=== PATIENT | female | born 1990 | race Caucasian/White ===

== ENCOUNTER 2018-02-23 17:38 | Emergency (ER) | payer OTHER ==
[2018-02-23 19:19] VITALS: BMI 36.2
[2018-02-23 20:10] LABS: BASO % 0.3 % (0.0-2.0); EOS # 0.1 K/uL (0.0-0.7); EOS % 0.9 % (0.0-4.0); HEMOGLOBIN 12.8 g/dL (12.0-16.0); LYMPH # 1.7 K/uL (1.0-4.3); LYMPH % 20.4 % (20.0-40.0); MEAN CELL VOLUME 83.3 fl (81.0-99.0); MEAN CORPUSCULAR HEMOGLOBIN 28.1 pg (27.0-31.0); MEAN CORPUSCULAR HGB CONC 33.8 g/dL (33.0-37.0); MEAN PLATELET VOLUME 10.3 fl (7.2-11.7); MONO # 0.7 K/uL (0.0-0.8); MONO % 7.8 % (0.0-10.0); NEUT % 70.6 % (50.0-75.0); NRBC % 0.1 % (0.0-0.0); RBC 4.54 Mil/uL (3.80-5.20); RED CELL DISTRIBUTION WIDTH 13.8 % (11.5-14.5); WHITE BLOOD COUNT 8.5 K/uL (4.8-10.8)
[2018-02-23 20:15] LABS: SQUAMOUS EPITHIAL 3 /hpf (0-5); URINE BACTERIA RARE (<OCC); URINE BILIRUBIN NEGATIVE (NEGATIVE); URINE BLOOD NEGATIVE (NEGATIVE); URINE CALCIUM OXALATE CRYSTALS MANY /hpf (<OCC); URINE CLARITY CLOUDY (Clear); URINE COLOR YELLOW (YELLOW); URINE GLUCOSE (UA) NEG (Normal); URINE LEUKOCYTE ESTERASE TRACE Leu/uL (Negative); URINE PROTEIN 100 mg/dL (NEGATIVE); URINE UROBILINOGEN 0.2-1.0 mg/dL (0.2-1.0)
[2018-02-23 20:17] LABS: INR 0.9 (0.9-1.2); PARTIAL THROMBOPLASTIN TIME 28.5 Seconds (25.6-37.1)
[2018-02-23 20:22] LABS: ALBUMIN 3.1 g/dL (3.5-5.0); ALT/SGPT 28 U/L (9-52); AST/SGOT 20 U/L (14-36); BLOOD UREA NITROGEN 14 mg/dl (7-17); CALCIUM 8.6 mg/dL (8.4-10.2); GFR AFRICAN-AMERICAN > 60; GFR NON-AFRICAN AMERICAN > 60; URIC ACID 5.6 mg/Dl (2.2-7.5)
[2018-02-24 02:02] VITALS: BP 123/74; PULSE 79; RESP 18; O2SAT 99
--- NOTE | 2018-02-24 02:30 | OBHP ---
Datetime: 02/23/2018 19:56 IP Adm Impression: Term, intrauterine IP Admit Plan: Observation/Evaluation Admit Comment, IP Provider: Pt is 28 y/o with IUP 38.2 (KAREL 03/07) sent from office to [facility] for evaluation of high blood pressure and preeclampsia symptoms. Pt's blood pressure noted to be in 150' s systolic in the office and pt was complaining of mild headache and occassional visual disturbances (seeing spots) for the past 2 weeks. She has also noticed puffiness of her hands and feet that have w orsened over the past week. Denies epigastric/ruq pain, ctx, vb, lof, n/v, fever. PNC: Dr. Rodriguez, GDM- diet controlled OBHx: 1 prior C section, 2008, for failure to progress, full term PMHx: Denies PSurgHx: Wiley, 2009 Meds: PNV Allergies: NKDA Social: Denies habits x3 Maternal vital signs on presentation: BP 129/83, HR 72 General: Appears confortable, NAD HEENT: Normocephalic, atraumatic, PEERLA, EOM in tact Cardio: RRR, no murmurs Pulm: CTABL Abdomen: Gravid, NT Ext: trace edema, non pitting FHR:140, reactive A: IUP 38.2wks sent from clinic for elevated BP and preeclampsia symptoms. Maternal blood pressure s reassuring. FHR reactive P: Preeclampsia labs sent- Urine protein 100, otherwise normal. Pt given Rx for 24 hours urine col lection to be f/u at next office visit. Preeclampsia precautions given. Discharge to home. Discussed case with Dr. Deborah Danielson, PGY1 Addendum by Dr. Cabrera: Patient evaluated independently and I agree with the above EGA AdmitDate IP: 38.2 Vital Signs Provider: Reviewed; Within Normal Limits IP Chief Complaint: Signs/Symptoms Gestational HTN
--- NOTE | 2018-02-24 02:30 | OBDCSUM ---
Datetime: 02/23/2018 20:50 Discharged to, Provider: Home Follow up at, Provider: dr bush's office Disch Instr Activity: Normal activity Disch Instr Diet: Regular Discharge Time: 02/23/2018 20:55 Follow up in weeks, Provider: drop off 24 hour urine collection sunday 02/25 Disch Referrals: None Discharge Diagnosis Prov Other: elevated BP
== END 2018-02-23 20:55 | disposition home or self-care (01) ==
LOC: H.EROB2 17:38
DX: O26.93 Pregnancy related conditions, unspecified, third trimester (principal); I10 Essential (primary) hypertension; Z3A.38 38 weeks gestation of pregnancy

== ENCOUNTER 2018-03-06 23:24 | Inpatient (IN) | payer OTHER ==
[2018-03-07 02:53] VITALS: BMI 36.0
[2018-03-07] MEDS: Lactated Ringer's 1,000 ML IV SCH ×4 (03:00→23:47)
--- NOTE | 2018-03-07 03:34 | OBHP ---
Datetime: 03/07/2018 03:10 IP Adm Impression: Term, intrauterine ; No Active Labor IP Chief Complaint Other: Elevated BPs IP Adm Impression Other: Previous Section X1, Requesting IP Admit Plan: Admit to unit; Initiate labor protocol Admit Comment, IP Provider: 28yo with IUP at 40wks ( EDC- 03/07/18 ) presents here today c/o cont raction pains which started @ 3pm yesterday but got intensified with a pain scale ranging from 6 to 7 /10. She has a prior C/S due to stasis of cervical dilatation in 2008. She denies any VB or LOF. De nies headache, dizziness, blurry vision or epigastric pain. Pt recieves care with Dr Rodriguez and reports that she has requested . She had been told of the risks, benefits and possible complications with . OBHx: 1 prior C section, 2008, for failure to progress, full term. Was evaluated for preeclampsia in the current on 02/23/18 and has GDMA diet controlled. PMHx: Denies PSurgHx: Wiley, 2009 Meds: PNV ShX: No Toxic habits X3 O; BP Range 135- 146 systollic to 76-100 diastolic, HR 64 Heart: RRR Chest: CTA B/L Abd: Soft, NT, BS- present TOCO- Irregular contractions FHR- 130s regular, Category1 Cx: Closed/30/-3, Vertex Extremities: Pedal edema +2 B/L Assessment: IUP at 40wks, irregular contractions Previous Cesarian Section, Requesting Elevated BPs Plan: -Admit to LND - Monitor for progress of labor -Preeclamptic workup - Consent for - The risks and benefits of including but not restricted to uterine rupture with possible placental detatchment and were discussed with the patient. Questions from the patient were answered. Consent for obtained. Pelvic Type - PN: Adequate Extremities - PN: Normal Abdomen - PN: Normal Back - PN: Normal Breast - PN: Normal Lungs - PN: Normal Heart - PN: Normal Thyroid - PN: Normal Neurologic - PN: Normal HEENT - PN: Normal General - PN: Normal Presentation-Admit: Vertex FHR - Baseline A Provider: 130 Membranes, Provider: Intact Gestation - Est Wks by US: 40.0 EGA AdmitDate IP: 40.0 IP Chief Complaint: Uterine contractions; Maternal discomfort NICHD Variability Prov Fetus A: Moderate 6-25bpm NICHD Accel Fetus A IP Provider: 15X15 FHR Category Provider Fetus A: Category I Dilatation, Provider: 0 Effacement, Provider: 40 Station, Provider: -3 Genitourinary Exam: Normal DTRs - PN: Normal
[2018-03-07] MEDS ORDERED: Nalbuphine 20 mg/ml Inj (1 ml) IVP PRN (03:36)
[2018-03-07] MEDS ORDERED: Promethazine 12.5 MG in Sodium Chloride 0.9% 50 ML IVPB ONE (03:37)
[2018-03-07 03:49] LABS: BASO % 0.3 % (0.0-2.0); EOS # 0.1 K/uL (0.0-0.7); EOS % 0.5 % (0.0-4.0); HEMOGLOBIN 13.1 g/dL (12.0-16.0); LYMPH # 1.8 K/uL (1.0-4.3); LYMPH % 15.1 % (20.0-40.0); MEAN CELL VOLUME 82.8 fl (81.0-99.0); MEAN CORPUSCULAR HEMOGLOBIN 27.8 pg (27.0-31.0); MEAN CORPUSCULAR HGB CONC 33.6 g/dL (33.0-37.0); MEAN PLATELET VOLUME 10.2 fl (7.2-11.7); MONO # 0.7 K/uL (0.0-0.8); MONO % 5.6 % (0.0-10.0); NEUT # 9.5 K/uL (1.8-7.0); NEUT % 78.5 % (50.0-75.0); NRBC % 0.1 % (0.0-0.0); RBC 4.71 Mil/uL (3.80-5.20); RED CELL DISTRIBUTION WIDTH 13.8 % (11.5-14.5); WHITE BLOOD COUNT 12.1 K/uL (4.8-10.8)
[2018-03-07 04:03] LABS: SQUAMOUS EPITHIAL 2 /hpf (0-5); URINE BACTERIA RARE (<OCC); URINE BILIRUBIN NEGATIVE (NEGATIVE); URINE BLOOD NEGATIVE (NEGATIVE); URINE CLARITY CLOUDY (Clear); URINE COLOR YELLOW (YELLOW); URINE GLUCOSE (UA) NEG (Normal); URINE LEUKOCYTE ESTERASE NEG Leu/uL (Negative); URINE PROTEIN 100 mg/dL (NEGATIVE); URINE UROBILINOGEN 0.2-1.0 mg/dL (0.2-1.0)
[2018-03-07 04:03] LABS: ALBUMIN 3.2 g/dL (3.5-5.0); ALT/SGPT 23 U/L (9-52); AST/SGOT 22 U/L (14-36); BILIRUBIN,DIRECT 0.2 mg/ml (0.0-0.4); BLOOD UREA NITROGEN 17 mg/dl (7-17); CALCIUM 8.7 mg/dL (8.4-10.2); GFR AFRICAN-AMERICAN > 60; GFR NON-AFRICAN AMERICAN > 60; URIC ACID 6.3 mg/Dl (2.2-7.5)
[2018-03-07 04:13] LABS: INR 0.9 (0.9-1.2); PARTIAL THROMBOPLASTIN TIME 29.5 Seconds (25.6-37.1)
--- NOTE | 2018-03-07 09:08 | OBPN ---
Datetime: 03/07/2018 08:54 IP Progress Impression Other: No Cervical Change IP Progress Impression: Reassuring heart rate IP Informed Consent Obtain: Section Delivery IP Procedures: Sterile Vag Exam IP Progress Plan: Deliver- Section Membranes, Provider: Intact Contraction Comments Provider: 6-7 FHR - Baseline A Provider: 130s Gestation - Est Wks by US: 40.0 Presentation-Admit: Vertex IP Progress Note Comment: Pt was re examined at her bedside. Pt reports of increasing pain with cntractions, Denies diziness, headache and seeing of scotoma. Chest: Clinically clear Abd: Soft,NT, BS present FHR - Category 1 TOCO - Q 6-7 Cervix: 0/40/-3 Vertex Assesment: IUP at 40 weeks, prior c/s X1 Painful uterine contractions Elevated BPs Plan: Pt reports that she would want to proceed with a repeat section since she has been here for more than 12 hours without cervical change. The risks and benefits of delivery was discussed. Questions from patient were answered. Plan: Prepare Pt for a repeat section. Vital Signs Provider: Reviewed NICHD Accel Fetus A IP Provider: 15X15 FHR Category Provider Fetus A: Category I NICHD Variability Prov Fetus A: Moderate 6-25bpm Dilatation, Provider: 0 Effacement, Provider: 40 Station, Provider: -3 NICHD Decel Fetus A IP Provider: None
[2018-03-07] MEDS ORDERED: cefOXitin 2 GM in Sodium Chloride 0.9% 100 ML IVPB ONE (09:12)
[2018-03-07] MEDS ORDERED: ceFAZolin IV 2 gm in Dextrose 0 GM/0 ML BAG IVPB ONE (09:13)
[2018-03-07] MEDS ORDERED: Morphine 1 mg/ml preservative-free Inj(Duramorph) ONE (09:37)
[2018-03-07] MEDS ORDERED: Phenylephrine 10 mg/ml Inj ONE (09:37)
[2018-03-07] MEDS ORDERED: Cellulose Hemostat 2X3 Sheet ONE ×2 (10:37→10:38)
[2018-03-07] MEDS ORDERED: DiphenhydrAMINE 50 mg/ml Inj IVP PRN ×2 (10:49→16:23)
[2018-03-07] MEDS ORDERED: Oxycodone/Acetaminophen 5/325 mg Tab PO PRN (11:29)
--- NOTE | 2018-03-07 11:38 | PCM.SURG1 ---
Surgeon's Initial Post Op Note - Surgeon's Notes Surgeon: Dr Shane Newspaper Clipper: Dr Alvarez ( Resident ) Type of Anesthesia: Spinal Anesthesia Administered By: Dr Stallings Pre-Operative Diagnosis: IUP at 40wks with Prior Section, Failed Operative Findings: Live female infant with BW of 3840gms and scores of 9 and 10 delivered in the KAREN and nuchal cord X1. Dense adhesions between the anterior wall of the uterus and the anterior abdominal wall preventing exteriorization of the uterus after delivery of the baby. the bladder was drawn up over the lower uterine segment which was very thin.The ovaries were felt on both sides and seen to be normal sized. The uterus appeared normal. EBL - 750ml. IV Fluids - 900mls. urine output - 200mls Post-Operative Diagnosis: Same as Preop diagnosis Operation Performed: Repeat low transverse section Specimen/Specimens Removed: Placenta for histopathology Estimated Blood Loss: EBL {In ML}: 750 Blood Products Given: N/A Date of Surgery/Procedure: 03/07/18 Time of Surgery/Procedure: 11:39
--- NOTE | 2018-03-07 17:57 | OBADHP ---
Datetime: 03/07/2018 08:54 Presentation-Admit: Vertex FHR - Baseline A Provider: 130s Membranes, Provider: Intact Contraction Comments Provider: 6-7 Gestation - Est Wks by US: 40.0 Vital Signs Provider: Reviewed NICHD Variability Prov Fetus A: Moderate 6-25bpm NICHD Accel Fetus A IP Provider: 15X15 FHR Category Provider Fetus A: Category I NICHD Decel Fetus A IP Provider: None Dilatation, Provider: 0 Effacement, Provider: 40 Station, Provider: -3 Datetime: 03/07/2018 03:10 IP Chief Complaint Other: Elevated BPs IP Adm Impression Other: Previous Section X1, Requesting Admit Comment, IP Provider: 28yo with IUP at 40wks ( EDC- 03/07/18 ) presents here today c/o cont raction pains which started @ 3pm yesterday but got intensified with a pain scale ranging from 6 to 7 /10. She has a prior C/S due to stasis of cervical dilatation in 2008. She denies any VB or LOF. De nies headache, dizziness, blurry vision or epigastric pain. Pt recieves care with Dr Rodriguez and reports that she has requested . She had been told of the risks, benefits and possible complications with . OBHx: 1 prior C section, 2008, for failure to progress, full term. Was evaluated for preeclampsia in the current on 02/23/18 and has GDMA diet controlled. PMHx: Denies PSurgHx: Choley, 2009 Meds: PNV ShX: No Toxic habits X3 O; BP Range 135- 146 systollic to 76-100 diastolic, HR 64 Heart: RRR Chest: CTA B/L Abd: Soft, NT, BS- present TOCO- Irregular contractions FHR- 130s regular, Category1 Cx: Closed/30/-3, Vertex Extremities: Pedal edema +2 B/L Assessment: IUP at 40wks, irregular contractions Previous Cesarian Section, Requesting Elevated BPs Plan: -Admit to LND - Monitor for progress of labor -Preeclamptic workup - Consent for - The risks and benefits of including but not restricted to uterine rupture with possible placental detatchment and were discussed with the patient. Questions from the patient were answered. Consent for obtained. Pelvic Type - PN: Adequate Extremities - PN: Normal Abdomen - PN: Normal Back - PN: Normal Breast - PN: Normal Lungs - PN: Normal Heart - PN: Normal Thyroid - PN: Normal Neurologic - PN: Normal HEENT - PN: Normal General - PN: Normal IP Chief Complaint: Uterine contractions; Maternal discomfort Genitourinary Exam: Normal DTRs - PN: Normal EGA AdmitDate IP: 40.0 IP Adm Impression: Term, intrauterine ; No Active Labor IP Admit Plan: Admit to unit; Initiate labor protocol
--- NOTE | 2018-03-07 17:59 | OBDS ---
DELIVERY PERSONNEL Delivery Doctor: Caprice Shane MD Scrub Nurse: Breanna Garcia Manufacturing Manager: Adilene Olvera RN Anesthesiologist: Althea Stallings MD Resident: aung MATERNAL INFORMATION Delivery Anesthesia: Spinal Medications in Delivery: pitocin ivpb 30 units after placenta delivery Estimated Blood Loss (ml): 750 ml Other Maternal Complications: gdm diet control high bp Provider Comments: Repeat low transverse Section with delivery of a viable female BW of 3840gm and APGARS scores of 9 and 10. EBL- 750mls Pt tolerated the procedure well. LABOR SUMMARY EDC: 03/07/2018 00:00 No. Babies in Womb: 1 Attempted: No LABOR INFORMATION Reason for Induction: Not Applicable Group B Beta Strep: Negative Antibiotics # of Doses: mefoxin 2 grams Antibiotics Time of Last Dose: 09:37 am Steroids Given: None Reason Steroids Not Administered: Not Applicable MEMBRANES Membranes Rupture Method: Artificial Rupture of Membranes: 03/07/2018 10:02 Length of Rupture (hrs): 0.33 Amniotic Fluid Color: Clear Amniotic Fluid Amount: Moderate STAGES OF LABOR Stage 3 hrs: 0 Stage 3 min: 1 VAGINAL DELIVERY Episiotomy: None Laceration Extension: N/A Laceration Type: None CSECTION DELIVERY Primary Indication: Repeat c/s gdm diet control Other Primary Indication: gdm high bp Secondary Indication: Repeat c/s in labor gdm high bp CSection Urgency: Non Elective CSection Incidence: Repeat Labor: Labor Elective: N/A CSection Incision: Lower Uterine Transverse Uterine Closure: Double-layer closure BABY A INFORMATION Delivery Date/Time: 03/07/2018 10:22 Method of Delivery: Born in Route : Yes : N/A Forceps: N/A Vacuum Extraction: N/A Shoulder Dystocia : No SHOULDER DYSTOCIA BABY A Infant Delivery Date/Time: 03/07/2018 10:22 PRESENTATION/POSITION BABY A Presentation: Cephalic Cephalic Presentation: Vertex Breech Presentation: N/A PLACENTA INFORMATION BABY A Placenta Delivery Time : 03/07/2018 10:23 Placenta Method of Delivery: Manual Removal Placenta Status: Delivered SCORES BABY A Heart Rate 1 min: >100 bpm Resp Effort 1 min: Good Cry Reflex Irritability 1 min: Cough or Sneeze or Pulls Away Muscle Tone 1 min: Active Motion Color 1 min: Body Tab, Extremities Blue Resuscitation Effort 1 min: Tactile Stimulation SCORE 1 MIN: 9 Heart Rate 5 min: >100 bpm Resp Effort 5 min: Good Cry Reflex Irritability 5 min: Cough or Sneeze or Pulls Away Muscle Tone 5 min: Active Motion Color 5 min: Completely Tab SCORE 5 MIN: 10 Heart Rate 10 min: >100 bpm Resp Effort 10 min: Good Cry Reflex Irritability 10 min: Cough or Sneeze or Pulls Away Muscle Tone 10 min: Active Motion Color 10 min: Completely Tab SCORE 10 MIN: 10 INFANT INFORMATION BABY A Gestational Age at Delivery: 40.0 Gestational Status: Term Infant Outcome : Liveborn Infant Condition : Stable Infant Sex: Female IDENTIFICATION/MEDS BABY A ID Band Number: [id number] ID Band Location: Left Leg Vitamin K Given : Left Thigh Erythromycin Given: Given Both Eyes WEIGHT/LENGTH BABY A Birthweight (gms): 3430 Weight (lb): 7 Infant Weight (oz): 9 Length Inches: 19.50 Infant Length cms: 49.5 CORD INFORMATION BABY A No. Cord Vessels: 3 Nuchal Cord : N/A Nuchal Cord Other: no True Knot: no Cord pH Baby Arterial: no Cord pH Baby Venous: no Cord Blood Taken: Yes Banking/Donate Info: none Infant Suction: Mouth; Nose ASSESSMENT BABY A Complications: None Physical Findings at Delivery: Within Normal Limits Infant Respirations: Appears Normal Almond Blancher Operator/ALS Called : Yes Care By: dr phil henry +figueroai rn /adilene olvera Transferred To: Nursery
--- NOTE | 2018-03-07 21:58 | OP ---
PROCEDURE DATE: 03/07/2018 PREOPERATIVE DIAGNOSES: Intrauterine at 40 weeks with prior section, with failed vaginal after . POSTOPERATIVE DIAGNOSES: Intrauterine at 40 weeks with prior section, with failed vaginal after . PROCEDURE DONE: A repeat low transverse section performed on 03/07/2018. SURGEON: Jhon Shane MD PERSONAL LINES INSURANCE AGENT: Dr. Charles, a family practice resident. Assistance to this procedure was needed for exposure of tissues and help in the delivery of the baby. The special event assistant remained with the surgery throughout its entire length. TYPE OF ANESTHESIA: Spinal. ANESTHESIA ADMINISTERED BY: Travis Stallings MD OPERATING FINDINGS: A live female with weight of 3840 g and scores of 9 and 10 in the first and fifth minutes respectively. The baby was delivered in the left occipito-anterior positioning with nuchal cord x1. The baby cried immediately after delivery. There were some dense adhesions between the anterior surface of the uterus to the anterior abdominal wall, making exteriorization of the uterus after delivery of the baby difficult. The bladder was drawn up over the uterine segment and the uterine segment was very thin. The ovaries were felt on both sides and were felt to be normal sized. ESTIMATED BLOOD LOSS: 750 mL. IV FLUID INTAKE: 900 mL. URINE OUTPUT: About 200 mL of clear urine. SPECIMENS: Placenta was taken for Histopathology. DESCRIPTION OF PROCEDURE: After obtaining informed consent, the patient was sent to the OR and sat on the OR table. After adequate spinal anesthesia, the patient was put in the supine position with a left lateral tilt. The patient was then prepped and draped in the usual sterile fashion. A Pfannenstiel skin incision was made about 2.5 cm from the pubic symphysis, where the previous section scar was made. The incision was made into the scar using a scalpel and this was extended through the subcutaneous tissues until the rectus fascia was identified. A transverse incision was made in the mid portion of the rectus fascia and this was later extended to both sides by means of sharp dissection with Mejia scissors. The rectus fascia was lifted off the underlying rectus muscles, both superiorly and inferiorly, by means of a blunt dissection and sharp dissection with Mejia scissors. The rectus muscles were in the midline carefully initially by using sharp incision using a scalpel, holding the edges and then probing carefully between the two bulks of the muscles until the peritoneum was entered. It was realized at this point that there were some dense adhesions to the anterior surface of the uterus and the anterior abdominal wall. These adhesions were carefully using Metzenbaum scissors. The lower uterine segment was identified. The bladder was drawn up over this part of the uterus. The bladder peritoneum was identified and dissected carefully and retracted inferiorly to expose the lower uterine segment. The lower uterine was very thin, you could barely see the amniotic membranes through this layer. A transverse incision was made in the lower segment using a scalpel. This was extended carefully through the myometrial fibers until the amniotic membranes were identified. The amniotic membranes were ruptured with the pickup forceps and the baby, which was in cephalic presentation, was delivered. Baby cried immediately after . The mouth and nostrils were bulb suctioned and a 3-vessel cord was clamped and cut and then baby was given to the nurses. The placenta was manually removed from the uterus and due to dense adhesions, the uterus was unable to be brought out of the abdominal cavity. The uterine cavity was cleaned of all debris using dry laparotomy pads. The uterine incision was then closed in two layers, the first layer in a running locked fashion and the second layer in a running fashion imbricating the first layer. Hemostasis around the area of repair was effected and noted. Attention was then turned to the anterior abdominal wall, which was closed in layers with 2-0 Vicryl for the peritoneum and the rectus muscles. The rectus fascia was reapproximated using Vicryl #0. The subcutaneous tissue was brought together by means of 2-0 plain catgut. The skin was closed in a subcuticular fashion using 4-0 Vicryl. All counts of instruments, laparotomy pads, and needles used were correct x3 and the patient was sent to the recovery room awake and in stable condition. Jhon Shane MD LULA
[2018-03-07] MEDS: Oxycodone/Acetaminophen 5/325 mg Tab PO PRN (23:35)
[2018-03-08] MEDS: Oxycodone/Acetaminophen 5/325 mg Tab PO PRN ×3 (06:04→22:43)
[2018-03-08 07:22] LABS: HEMOGLOBIN 11.2 g/dL (12.0-16.0); MEAN CELL VOLUME 83.1 fl (81.0-99.0); MEAN CORPUSCULAR HEMOGLOBIN 28.2 pg (27.0-31.0); MEAN CORPUSCULAR HGB CONC 33.9 g/dL (33.0-37.0); RBC 3.99 Mil/uL (3.80-5.20); RED CELL DISTRIBUTION WIDTH 13.5 % (11.5-14.5); WHITE BLOOD COUNT 8.8 K/uL (4.8-10.8)
--- NOTE | 2018-03-08 08:41 | OBPPN ---
Datetime: 03/08/2018 08:37 PP Pain Prov: Within normal limits PP Nausea Prov: Denies PP Flatus Prov: Yes PP Breasts Prov: Normal PP Heart Prov: Normal PP Lungs Prov: Normal PP Abdomen/Uterus Prov: Normal PP Lochia Prov: Normal PP Vulva/Perineum Prov: Normal PP CVA Tenderness Prov: Normal PP Extremities Prov: Normal PP Comments Phys Exam Prov: Abd: Soft, NT, Bs - present UT - Firm Incision: Clean and dry. PP Impression Prov: Normal progression PP Progress Note Prov: S/P Repeat Section, POD #1, Clinically Stable. Plan: Continue care encourage ambulation. Vital Signs Provider PP: Reviewed
[2018-03-08] MEDS ORDERED: Prenatal Multivit/Folic Acid/Iron Tab PO SCH (09:00)
[2018-03-08] MEDS: Lactated Ringer's 1,000 ML IV SCH ×2 (09:33→09:39)
[2018-03-09] MEDS: Oxycodone/Acetaminophen 5/325 mg Tab PO PRN (05:56)
--- NOTE | 2018-03-09 10:37 | OBPPN ---
Datetime: 03/09/2018 10:32 PP Pain Prov: Within normal limits PP Nausea Prov: Denies PP Flatus Prov: Yes PP BM Prov: Yes PP Breasts Prov: Normal PP Heart Prov: Normal PP Lungs Prov: Normal PP Abdomen/Uterus Prov: Normal PP Lochia Prov: Normal PP Vulva/Perineum Prov: Normal PP CVA Tenderness Prov: Normal PP Extremities Prov: Normal PP Comments Phys Exam Prov: Fundus firm under umbilicus Incision clean/dry/intact PP Impression Prov: Normal progression PP Plan Prov: Continue present management PP Progress Note Prov: Patient denies CP, no SOB, no N/V, tolerating Po diet, ambulating/voiding wel l, mild lochia, abdominal pain tolerable with meds A/P POD #2 1. Continue orders 2. Encourage ambulation/ IP PP Procedures: None Vital Signs Provider PP: Reviewed; Within Normal Limits
[2018-03-10] MEDS: Oxycodone/Acetaminophen 5/325 mg Tab PO PRN (09:15)
--- NOTE | 2018-03-10 09:36 | OBPPN ---
Datetime: 03/10/2018 09:31 PP Pain Prov: Within normal limits PP Nausea Prov: Denies PP Flatus Prov: Yes PP BM Prov: Yes PP Breasts Prov: Normal PP Heart Prov: Normal PP Lungs Prov: Normal PP Abdomen/Uterus Prov: Normal PP Lochia Prov: Normal PP Vulva/Perineum Prov: Normal PP CVA Tenderness Prov: Normal PP Extremities Prov: Normal PP C/S Incision Prov: Normal PP Progress Prov: Normal PP Impression Prov: Normal progression PP Plan Prov: Discharge PP Progress Note Prov: She feels fine; ready to go home A: S/P C/S day 3 O neg (baby neg) PLANL discharge home and follwo up in 1-2w Vital Signs Provider PP: Reviewed; Within Normal Limits
[2018-03-10 17:59] VITALS: BP 110/66; PULSE 72; RESP 20; TEMP 98.4; O2SAT 98
--- NOTE | 2018-03-11 01:46 | OBDCSUM ---
Datetime: 03/10/2018 09:35 Discharge Time: 03/10/2018 13:55
== END 2018-03-10 13:55 | disposition home or self-care (01) | DRG 371 ==
LOC: H.EROB2 23:24 → H.L&D 03-07 02:54 → H.OB/GYN 03-07 16:33
PROVIDERS: ADMIT Obstetrics & Gynecology; ATTEND Obstetrics & Gynecology
PROC: 10D00Z1 Extraction of Products of Conception, Low, Open Approach (ICD-10-PCS; principal; 2018-03-07)
PROC: 4A1HXCZ Monitoring of Products of Conception, Cardiac Rate, External Approach (ICD-10-PCS; 2018-03-07)
DX: O34.211 Maternal care for low transverse scar from previous cesarean delivery (principal); O24.429 Gestational diabetes mellitus in childbirth, unspecified control; N85.8 Other specified noninflammatory disorders of uterus; Z3A.40 40 weeks gestation of pregnancy; Z37.0 Single live birth; O12.04 Gestational edema, complicating childbirth